=== PATIENT | female | born 1970 | race Caucasian/White ===

== ENCOUNTER 2018-07-23 21:10 | Emergency (ER) | payer OTHER ==
[~2018-07-23] VITALS: Ht 160 cm; Wt 51.7 kg
[2018-07-23] MEDS ORDERED: TRAMADOL 50 MG50 MG PO (22:57)
[2018-07-23 23:11] VITALS: BP 138/83
== END 2018-07-23 23:12 | disposition home or self-care (01) ==
LOC: ER 21:10
DX: S62.616A Displaced fracture of proximal phalanx of right little finger, initial encounter for closed fracture (principal); W18.39XA Other fall on same level, initial encounter; Y92.89 Other specified places as the place of occurrence of the external cause; Y93.89 Activity, other specified; Y99.8 Other external cause status

== ENCOUNTER 2018-11-07 13:28 | Emergency (ER) | payer BC, OTHER ==
[~2018-11-07] VITALS: Ht 160 cm; Wt 58.1 kg
[~2018-11-07 13:28] MED LIST: TRAMADOL 50 MG50 MG PO
[2018-11-07] MEDS ORDERED: TESSALON PERLE100 MG PO (15:04)
[2018-11-07 15:19] VITALS: BP 114/74
== END 2018-11-07 15:24 | disposition home or self-care (01) ==
LOC: ER 13:28
DX: J06.9 Acute upper respiratory infection, unspecified (principal); Z77.22 Contact with and (suspected) exposure to environmental tobacco smoke (acute) (chronic)

== ENCOUNTER 2019-08-09 10:20 | Emergency (ER) | payer OTHER ==
[~2019-08-09] VITALS: Ht 160 cm; Wt 58.1 kg
[~2019-08-09 10:20] MED LIST changes: +TESSALON PERLE100 MG PO
[2019-08-09] MEDS ORDERED: NORCO 5-325 TA1 EAC1 PO (12:07)
[2019-08-09] MEDS ORDERED: LIDOCAINE PAIN1 EACH TRANSDERM (12:07)
[2019-08-09 12:29] VITALS: BP 128/74
== END 2019-08-09 12:44 | disposition home or self-care (01) ==
LOC: ER 10:20
DX: S00.11XA Contusion of right eyelid and periocular area, initial encounter (principal); S09.90XA Unspecified injury of head, initial encounter; M54.6 Pain in thoracic spine; R07.81 Pleurodynia; Z77.22 Contact with and (suspected) exposure to environmental tobacco smoke (acute) (chronic); W01.0XXA Fall on same level from slipping, tripping and stumbling without subsequent striking against object, initial encounter; Y93.89 Activity, other specified; Y92.098 Other place in other non-institutional residence as the place of occurrence of the external cause; Y99.8 Other external cause status

== ENCOUNTER 2020-05-02 11:56 | Emergency (ER) | payer OTHER ==
[~2020-05-02] VITALS: Ht 160 cm; Wt 65.8 kg
[~2020-05-02 11:56] MED LIST changes: +LIDOCAINE PAIN1 EACH TRANSDERM; +NORCO 5-325 TA1 EAC1 PO
[2020-05-02] MEDS ORDERED: VIBRAMYCIN 100100 M2 PO (13:16)
[2020-05-02] MEDS ORDERED: PREDNISONE 20 M20 MG PO (13:16)
[2020-05-02 13:35] VITALS: BP 160/90
== END 2020-05-02 13:35 | disposition home or self-care (01) ==
LOC: ER 11:56
DX: J32.9 Chronic sinusitis, unspecified (principal); I25.10 Atherosclerotic heart disease of native coronary artery without angina pectoris; Z79.899 Other long term (current) drug therapy; Z20.828 Contact with and (suspected) exposure to other viral communicable diseases

== ENCOUNTER 2020-09-22 06:44 | Emergency (ER) | payer OTHER ==
[~2020-09-22] VITALS: Ht 160 cm; Wt 73.0 kg
[~2020-09-22 06:44] MED LIST changes: +PREDNISONE 20 M20 MG PO; +VIBRAMYCIN 100100 M2 PO
[2020-09-22 07:08] LABS: URINE BILIRUBIN NEGATIVE (Negative); URINE BLOOD TRACE (Negative); URINE CLARITY SL HAZY; URINE COLOR YELLOW; URINE GLUCOSE-RANDOM* NEGATIVE (Negative); URINE KETONES NEGATIVE (Negative); URINE LEUKOCYTES-REFLEX NEGATIVE (Negative); URINE NITRITE-REFLEX NEGATIVE (Negative); URINE PROTEIN (DIPSTICK) NEGATIVE (Negative); URINE SPECIFIC GRAVITY >= 1.030 (1.005-1.035); URINE UROBILINOGEN 0.2 E.U./dl (0.2-1.0)
[2020-09-22 07:40] LABS: HEMATOCRIT 42.3 % (37.0-47.0); HEMOGLOBIN 14.2 gm/dL (12.0-15.0); MCH 30.4 pg (26.0-34.0); MCHC 33.6 g/dL (28.0-37.0); MCV 90.7 fL (80.0-100.0); RBC 4.67 mil/uL (4.20-5.00)
[2020-09-22 08:08] LABS: CALCIUM 9.2 mg/dL (8.5-10.1); CREATININE 0.6 mg/dL (0.6-1.0); POTASSIUM 4.1 mmol/L (3.5-5.1)
[2020-09-22 08:14] LABS: ALBUMIN 3.2 g/dL (3.4-5.0); DIRECT BILIRUBIN 0.1 mg/dL (<0.1-0.2); TOTAL BILIRUBIN 0.9 mg/dL (0.2-1.0); TOTAL PROTEIN 6.9 g/dL (6.4-8.2)
[2020-09-22 09:10] VITALS: BP 135/70
== END 2020-09-22 09:10 | disposition home or self-care (01) ==
LOC: ER 06:44
PROVIDERS: Emergency Medicine
DX: R10.9 Unspecified abdominal pain (principal); R11.0 Nausea; Z98.51 Tubal ligation status; Z87.42 Personal history of other diseases of the female genital tract

== ENCOUNTER 2021-01-15 21:26 | Emergency (ER) | payer OTHER ==
[~2021-01-15] VITALS: Ht 160 cm; Wt 72.6 kg
[2021-01-15] MEDS ORDERED: LEXAPRO 10 MG T10 M2 PO (21:34)
[2021-01-15] MEDS ORDERED: LISINOPRIL10 MG PO (21:34)
[2021-01-15 22:12] LABS: ABSOLUTE NEUTROPHILS 15.8 thou/uL (1.4-8.2); BASOPHILS 0.2 % (0.0-2.0); EOSINOPHILS 0.8 % (0.0-3.0); HEMATOCRIT 47.2 % (37.0-47.0); HEMOGLOBIN 15.7 gm/dL (12.0-15.0); LYMPHOCYTES 9.5 % (24.0-44.0); MCH 30.1 pg (26.0-34.0); MCHC 33.2 g/dL (28.0-37.0); MCV 90.7 fL (80.0-100.0); MONOCYTES 3.3 % (1.0-8.0); PLATELET COUNT 276 thou/uL (150-400); POLYS 86.2 % (36.0-66.0); WBC 18.4 thou/uL (4.0-11.0)
[2021-01-15 22:22] LABS: ANION GAP 7 mmol/L (7-16); BUN 18 mg/dL (7-18); CALCIUM 9.8 mg/dL (8.5-10.1); CHLORIDE 105 mmol/L (98-107); CO2 30 mmol/L (21-32); CREATININE 0.9 mg/dL (0.6-1.0); GLUCOSE 135 mg/dL (74-106); POTASSIUM 4.1 mmol/L (3.5-5.1); SODIUM 142 mmol/L (136-145)
[2021-01-15 22:23] LABS: URINE BILIRUBIN NEGATIVE (Negative); URINE BLOOD TRACE (Negative); URINE CLARITY TURBID; URINE COLOR YELLOW; URINE GLUCOSE-RANDOM* NEGATIVE (Negative); URINE KETONES 1+ (Negative); URINE LEUKOCYTES-REFLEX TRACE (Negative); URINE NITRITE-REFLEX NEGATIVE (Negative); URINE PROTEIN (DIPSTICK) 3+ (Negative); URINE SPECIFIC GRAVITY >= 1.030 (1.005-1.035); URINE UROBILINOGEN 0.2 E.U./dl (0.2-1.0)
[2021-01-15 22:32] LABS: ALBUMIN 3.7 g/dL (3.4-5.0); SGOT 26 U/L (15-37); SGPT 28 U/L (14-59); TOTAL BILIRUBIN 0.2 mg/dL (0.2-1.0); TOTAL PROTEIN 8.3 g/dL (6.4-8.2); TROPONIN-I <0.06 ng/mL (<0.06)
[2021-01-15 22:43] LABS: BACTERIA-REFLEX 1-9 Few /HPF (None Seen); CASTS None Seen /LPF (None Seen); CRYSTALS None Seen /LPF (None Seen); MUCUS >6 Heavy strn/LPF (None Seen); SQUAMOUS >10 Many /LPF (0-3); URINE RBC 3-10 Few /HPF (0-2); URINE WBC-REFLEX 0-5 Rare /HPF (0-5)
[2021-01-16] MEDS ORDERED: CIPROFLOXACIN500 M1 PO (02:29)
[2021-01-16] MEDS ORDERED: FLAGYL500 M1 PO (02:29)
[2021-01-16 03:00] VITALS: BP 133/72
--- NOTE | 2021-01-16 15:11 | EKG ---
[place] [address] [facility] [place] [address] ELECTROCARDIOGRAM REPORT Name: PATY LUCIO [facility] [id number] Admission: 01/15/21 Attend Phys: Discharge: 01/16/21 Date of : 74 Report #: [id number] [facility] ED Test Date: 2021-01-15 Test Time: 21:54:23 Pat Name: PATY LUCIO Department: Room: Gender: F Clarifier Operator: NAHOMI : 1970 Requested By: Glenys Villa Order Number: [id number] MD: Todd Horner Measurements Intervals [place] Rate: 90 P: 45 KS: 153 QRS: 25 QRSD: 84 T: 20 QT: 339 QTc: 415 Interpretive Statements Sinus rhythm Left ventricular hypertrophy No previous ECG available for comparison Electronically Signed On 01-16-2021 15:11:21 CDT by Todd Horner [email or web address] <ELECTRONICALLY SIGNED> By: Todd Horner MD, [facility] 01/16/21 1511 [id number] Todd Horner MD, FACC /EPI
== END 2021-01-16 03:00 | disposition home or self-care (01) ==
LOC: ER 21:26
PROVIDERS: Emergency Medicine
DX: K52.9 Noninfective gastroenteritis and colitis, unspecified (principal); I48.91 Unspecified atrial fibrillation; Z79.899 Other long term (current) drug therapy